=== PATIENT | female | born 1945 | race Asian ===

== ENCOUNTER 2021-05-12 22:21 | Emergency (ER) | payer OTHER, BC ==
[~2021-05-12] VITALS: Ht 147.3 cm; Wt 42.2 kg
[2021-05-12 22:42] VITALS: BP_SYST 142
[2021-05-12] MEDS ORDERED: cefTRIAXone 1 GM in LIDOCAINE 1%, 20 ML MDV 2.1 ML IM ONE (23:00)
[2021-05-12] MEDS ORDERED: AMOX-423 PO (23:40)
== END 2021-05-12 23:53 | disposition home or self-care (01) ==
LOC: SED 22:21
DX: S21.152A Open bite of left front wall of thorax without penetration into thoracic cavity, initial encounter (principal); S61.451A Open bite of right hand, initial encounter; I10 Essential (primary) hypertension; Z79.899 Other long term (current) drug therapy; W54.0XXA Bitten by dog, initial encounter; Y93.89 Activity, other specified; Y92.89 Other specified places as the place of occurrence of the external cause; Y99.8 Other external cause status
CPT/HCPCS: 96372; 99283; J0696; J2001